=== PATIENT | male | born 1950 | race Caucasian/White ===

== ENCOUNTER 2018-08-02 11:10 | Outpatient (CLI) | payer MEDICARE, BC, SELFPAY ==
--- NOTE | 2018-08-02 13:04 | DI.RAD_ITS ---
SYMPTOM/DIAGNOSIS: PAIN LAT SIDE OF FOOT, M79.671 RIGHT FOOT: There are no prior comparison exams. There is a smoothly marginated bony density adjacent to the base of the fifth metatarsal which does not appear acute. No acute fracture or dislocation is seen. Heel spurs and vascular calcifications are present. IMPRESSION: Old fracture versus ossicle at the lateral base of the fifth metatarsal.
[2018-08-02 16:06] LABS: Vitamin B12 446 pg/mL (193-986)
== END 2018-08-02 11:30 ==
PROVIDERS: PCP Family Medicine; Visit Provider Family Medicine
DX: M79.671 Pain in right foot (principal); M77.31 Calcaneal spur, right foot; M85.871 Other specified disorders of bone density and structure, right ankle and foot; G62.9 Polyneuropathy, unspecified
CPT/HCPCS: 36415; 73630; 82607

== ENCOUNTER → 2018-10-24 08:29 | Outpatient (BNVA) | payer MEDICARE, BC, SELFPAY | PROVIDERS: PCP Family Medicine; Visit Provider Psychiatry & Neurology Neurology | DX: G62.9 Polyneuropathy, unspecified (principal); G57.10 Meralgia paresthetica, unspecified lower limb; I10 Essential (primary) hypertension | CPT/HCPCS: 99205; 99215 ==

== ENCOUNTER 2020-09-09 04:43 | Outpatient (CLI) | payer MEDICARE, BC, SELFPAY ==
[2020-09-09 13:43] LABS: ALT 65 U/L (16-63); AST 44 U/L (15-37); Albumin 4.2 g/dL (3.4-5.0); Alkaline Phosphatase 54 U/L (46-116); Anion Gap 10.8 mmol/L (3-11); BUN 15 mg/dL (7-18); Bilirubin, Total 0.8 mg/dL (0.2-1.0); CO2 26.2 mmol/L (21.0-32.0); CREATININE 0.93 mg/dL (0.70-1.30); Calcium 9.3 mg/dL (8.5-10.1); Calculated LDL 186 mg/dL (<100); Chloride 103 mmol/L (98-107); Cholesterol 270 mg/dL (<200); Glucose 82 mg/dL (74-106); HDL Cholesterol 63 mg/dL (40-60); Potassium 4.5 mmol/L (3.5-5.1); Sodium 140 mmol/L (136-145); Total Protein 7.8 g/dL (6.4-8.2); Triglyceride 108 mg/dL (<150)
== END 2020-09-09 05:03 ==
DX: E78.5 Hyperlipidemia, unspecified (principal); Z00.00 Encounter for general adult medical examination without abnormal findings
CPT/HCPCS: 36415; 80053; 80061

== ENCOUNTER 2021-01-05 14:19 | Emergency (ER) | payer MEDICARE, BC, SELFPAY ==
--- NOTE | 2021-01-05 14:15 | DI.RAD_ITS ---
Exam(s) XR HAND RT COMPLETE EXAM: XR HAND RT COMPLETE CLINICAL HISTORY: crushed by drive shaft, attn prox ring finger. TECHNIQUE: 2D digital imaging was performed. COMPARISON: No exams were available for comparison FINDINGS: There is a nondisplaced transverse fracture in the proximal 3rd of the proximal phalanx of 4th-ring f ron. There is also a prominent flexion deformity at the level of the DIP joint of the 5th finger. There is no fracture of the 5th finger evident. Degenerative changes in the DIP joints are noted th roughout the hand. Also mild subluxation of the metacarpophalangeal joint of the 3rd-middle finger d egenerative basis. There are no erosions. IMPRESSION: DATA REPOSITORY: RADIATION DOSE DELIVERED:
[2021-01-05 14:26] VITALS: BP 160/74; PULSE 74; RESP 15; TEMP 36.8; O2SAT 94
--- NOTE | 2021-01-05 14:27 | ED.GENADUL_ITS ---
Discharge Plan Disposition Patient Disposition: HOME Condition: Good Discharge Details Clinical Impression: Fracture of phalanx of ring finger Primary Care Provider: Mihaela Hatfield ED Provider: Ward Andre Home Meds and New Rx's Prescriptions: Continued omega-3 fatty acids [Fish Oil Concentrate] 1,000 mg capsule 1,000 mg PO DAILY Qty: 90 RF: 4 pyridoxine (vitamin B6) 25 mg tablet 25 mg PO DAILY RF: 0 simvastatin 10 mg tablet 10 mg PO QPM Qty: 30 RF: 11 lisinopril 10 mg tablet 10 mg PO DAILY Qty: 90 RF: 4 aspirin [Aspir-81] 81 mg tablet,delayed release (DR/EC) 81 mg PO DAILY RF: 0 multivitamin [Daily Multi-Vitamin] 1 EACH tablet 1 ea PO RF: 0 metoprolol tartrate 50 mg tablet 25 mg PO BID Qty: 90 RF: 4 nitroglycerin 0.4 mg tablet, sublingual 0.4 mg sublingual Q5M PRN (Reason: chest pain) Qty: 20 RF: 3 vitamin b1 See Rx Instructions .ROUTE .COMPLEX RF: 0 Discharge Instructions Instructions: Finger Fracture (ED) Additional Instructions: At this time you have a fracture of your finger. Please leave the splint on and do not bend your finger. Please take the antibiotic as directed to prevent any infection. If you notice any worsening of your symptoms, or any new symptoms such as redness, drainage vomiting, diarrhea, fever, chills, shortness of breath, chest pain, numbness, weakness, or fainting , please return immediately to the emergency department for reevaluation. Please follow up with your primary care provider as soon as possible for reassessment and reevaluation. As always, it was a pleasure participating in your medical care today. Referrals: Mihaela Hatfield, [facility] [Primary Care Provider] - Medical Decision Making 70-year-old male with a past medical history of hypertension, high cholesterol, he takes a daily aspirin, he presents today for evaluation for right hand pain. Patient states that he is working and a [address] shaft fell fairly fast onto his right hand causing some evidence of injury. He came to the ER for further assessment. Patient used to be right-hand dominant, but after multiple previous injuries to the right hand he states he now uses his left hand more. 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 He is not on any blood thinners aside for the daily aspirin. He describes the pain as minimal. He has no other complaint this time Physical exam demonstrates mild bruising and swelling over the patient's fourth metacarpal phalangeal joint. He demonstrates good flexion and extension and strength otherwise to what he describes as his baseline. Sensation and vascular exam appears intact. Concern for potential fracture. Exam is challenging due to the nature and size of the patient's hand at baseline. The patient is not on any Tylenol or Motrin at this time. Of note the patient is not up-to-date on his tetanus. Review of previous records demonstrates that he is not inclined to getting his vaccines for tetanus. We will give him the option again today 3:17 PM X-ray shows evidence of a small transverse fracture at the proximal phalanx of the fourth digit. He does have the chronic deformity of his fifth digit, which is unchanged. He does still have a small scrape and/or superficial laceration, over the area of the break site however out of an abundance of precaution we will prescribe Keflex antibiotic to prevent any infection. Patient did accept a tetanus shot this evening. We splinted the finger, he tolerated this well. Recommend close follow-up with his PCP, Tylenol and Motrin as needed. Will give a prescription for home Keflex. Discussed red flags which to return. I have extensively reviewed the treatment plan and discharge instructions with the patient and their family. I have addressed all patient concerns at this time. The patient and family was made aware of what symptoms to monitor for that would warrant a return to the emergency department. Discussed the plan with the patient and family, they demonstrate verbal understanding and agreement with our assessment and plan at this time. The documentation in this chart was dictated using [employer] dictation software. Please excuse any dictation errors. FINDINGS: There is a nondisplaced transverse fracture in the proximal 3rd of the proximal phalanx of 4th-ring finger. There is also a prominent flexion deformity at the level of the DIP joint of the 5th finger. There is no fracture of the 5th finger evident. Degenerative changes in the DIP joints are noted throughout the hand. Also mild subluxation of the metacarpophalangeal joint of the 3rd-middle finger degenerative basis. There are no erosions. HPI General Date/Time Provider Initiated Documentation: 01/05/21 14:20 . HPI Narrative: 70-year-old male with a past medical history of hypertension, high cholesterol, he takes a daily aspirin, he presents today for evaluation for right hand pain. Patient states that he is working and a [address] shaft fell fairly fast onto his right hand causing some evidence of injury. He came to the ER for further assessment. Patient used to be right-hand dominant, but after multiple previous injuries to the right hand he states he now uses his left hand more. 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 He is not on any blood thinners aside for the daily aspirin. He describes the pain as minimal. He has no other complaint this time Related Data Home Medications Medication Instructions Recorded Confirmed multivitamin [Daily Multi-Vitamin] 1 ea PO 03/29/16 09/13/20 aspirin 81 mg tablet,delayed 81 mg PO DAILY 08/01/18 01/05/21 release metoprolol tartrate 50 mg tablet 25 mg PO BID #90 tab 11/25/19 01/05/21 nitroglycerin 0.4 mg sublingual 0.4 mg SUBLINGUAL Q5M PRN #20 tab 06/30/20 01/05/21 tablet omega-3 fatty acids 1,000 mg 1,000 mg PO DAILY #90 cap 07/13/20 01/05/21 capsule vitamin b1 See Rx Instructions .ROUTE .COMPLEX 07/27/20 09/13/20 pyridoxine (vitamin B6) 25 mg 25 mg PO DAILY 09/13/20 01/05/21 tablet simvastatin 10 mg tablet 10 mg PO QPM #30 tab 09/13/20 09/13/20 lisinopril 10 mg tablet 10 mg PO DAILY #90 tab-cap 09/19/20 01/05/21 Previous Rx's Medication Instructions Recorded metoprolol tartrate 50 mg tablet 25 mg PO BID #90 tab 11/25/19 nitroglycerin 0.4 mg sublingual 0.4 mg SUBLINGUAL Q5M PRN #20 tab 06/30/20 tablet omega-3 fatty acids 1,000 mg 1,000 mg PO DAILY #90 cap 07/13/20 capsule simvastatin 10 mg tablet 10 mg PO QPM #30 tab 09/13/20 lisinopril 10 mg tablet 10 mg PO DAILY #90 tab-cap 09/19/20 Allergies Allergy/AdvReac Type Severity Reaction Status Date / Time No Known Allergies Allergy Verified 01/05/21 14:31 Review of Systems All systems reviewed & are unremarkable except as noted in HPI and below PFSH Medical History Acne rosacea Actinic keratosis Alcohol use Coronary artery disease involving 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 (03/24/16) Coronary stent x 19 November 2010 Recurrent angina CABG x2 03/10/16 Essential hypertension Hearing loss History of tobacco use Hyperlipidemia Immunization counseling Peripheral neuropathy Sciatica Surgical History Coronary Artery Bypass Gaft (CABG) (03/10/16) Coronary Stent (11/30/10) Repair of inguinal hernia (~2002) RIGHT Family History Mother Diabetes Father , 85 Cancer Social History Smoking/Tobacco Use Status: Never Smoking risk assessment performed?: Yes Alcohol Intake: current Alcohol Intake frequency: 3 or more drinks per day Alcohol type: beer Drug use: Never Substance use type: does not use Counseling given: No Counseling provided: none Caregiver/Support person: No Household members: spouse and family Housing: house 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 Pets and animals: No Sexually active: Yes Do you think of yourself as: straight/heterosexual Current gender identity: female What is your relationship status?: How often do you talk on the phone with friends or family?: three or more times per week How often do you get together with friends or relatives?: decline to answer How often do you attend congregation or hinduism services?: decline to answer Do you belong to any clubs or organized social groups?: yes Panel score (0-1 are the most socially isolated patients): 3 What type of physical activity do you participate in: none Sussy/Confucianist: Spiritism Seatbelt use: sometimes Drive intox 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 3.ENT: Atraumatic external nose and ears. Moist MM. Neck: Symmetric, trachea midline, No thyromegaly. 4.CVS: +S1/S2, No murmurs or gallops. Peripheral pulses 2+ and equal in all extremities. Brisk capillary refill in all extremities. 5.RESP: Unlabored respiratory effort. Clear to auscultation bilaterally. No wheezes rales or rhonchi 6.GI: Soft, Nontender/Nondistended, No hepatosplenomegaly. No guarding or rebound. 7.MSK: Patient's right hand is notably large at baseline secondary to calluses, muscles, and previous scars, there appears to be some mild bruising and swelling over the metacarpal phalangeal joint of the fourth digit on the right hand. Small scrape and mild bleeding there. Tenderness is present there, but no tenderness at the distal phalanx, or any of the other fingers. No other tenderness over the carpals or metacarpals. Sensation appears to be intact distally, and patient is able to flex and extend to what he describes this is baseline. Capillary refill is brisk in all fingers. No other complaints at this time. 8.Skin: Warm, Dry. No rashes or lesions. 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 Sensation grossly intact, no focal neurologic deficits. 10.Psych: (AAO) x3. Appropriate mood and affect
[2021-01-05] MEDS: Cephalexin 500 MG CAP, 4 CAPS/BTL PO (15:10)
== END 2021-01-05 15:20 | disposition home or self-care (01) ==
PROVIDERS: Emergency Provider Student in an Organized Health Care Education/Training Program
DX: S67.21XA Crushing injury of right hand, initial encounter (principal); S62.644A Nondisplaced fracture of proximal phalanx of right ring finger, initial encounter for closed fracture; W20.8XXA Other cause of strike by thrown, projected or falling object, initial encounter
CPT/HCPCS: 26720; 90471; 73130

== ENCOUNTER 2022-10-05 00:26 | Outpatient (CLI) | payer OTHER, SELFPAY ==
--- NOTE | 2022-10-05 08:42 | DI.RAD_ITS ---
Exam(s) XR LUMBAR SPINE COMPLETE EXAM: XR LUMBAR SPINE COMPLETE CLINICAL HISTORY: low back pain is worse after 6 weeks of PT,m54.50. TECHNIQUE: 2D digital imaging was performed. COMPARISON: No exams were available for comparison FINDINGS: Six views: There is transitional anatomy here with a transitional lumbosacral vertebra. There is no evidence of fracture nor listhesis. No pars defects. Multilevel moderate disc space soo rowing noted throughout the lumbosacral spinal column. Multilevel anterior osseous lipping. No scol iosis. Mild facet degenerative changes. SI joints unremarkable. Bone density normal. No osseous l esions IMPRESSION: Multilevel mild-moderate disc space narrowing. DATA REPOSITORY: RADIATION DOSE DELIVERED:
== END 2022-10-05 00:46 ==
PROVIDERS: PCP Nurse Practitioner Family; Visit Provider Nurse Practitioner Family
DX: M54.50 Low back pain, unspecified (principal)
CPT/HCPCS: 72110

== ENCOUNTER 2022-11-02 01:20 | Outpatient (CLI) | payer OTHER, SELFPAY ==
--- NOTE | 2022-11-02 06:45 | DI.MRI_ITS ---
Exam(s) MR LUMBAR SPINE WO EXAM: MR LUMBAR SPINE WO CLINICAL HISTORY: LOW BACK pain, worse after 6 weeks of PT,M54.50. TECHNIQUE: Imaging Protocol: Axial computed tomography images with coronal and sagittal reformatted images were created and reviewed COMPARISON: CR XR LUMBAR SPINE COMPLETE from 10/05/2022 FINDINGS: Bones: The last intervertebral disc space is designated the L5/S1 level for the numbering purpose of this examination. The vertebral body heights are well maintained. Alignment is satisfactory. No fracture is seen. T12-L1: No disc herniations or bulges are present. L1-2: Mild concentric disc bulging. L2-3: Mild loss of disc height. Small endplate osteophytes. Circumferential disc bulging. Facet d egenerative changes and ligamentous hypertrophy. Mild central canal stenosis. Moderate to severe bi lateral neural foraminal narrowing. L3-4: Moderate concentric disc bulging. Facet degenerative changes moderate central canal stenosis. Moderate to severe bilateral neural foraminal narrowing. L4-5: Disc height is maintained. Mild concentric disc bulging. Prominent facet degenerative change s severe bilateral neural foraminal narrowing. Moderate central canal stenosis. L5-S1: Mild disc bulging. Facet degenerative changes and ligamentous hypertrophy. Mild central can al stenosis. Moderate to severe bilateral neural foraminal narrowing. There is abundant epidural fat which contributes to a degree of central canal stenosis. The visualized SI joints and sacrum are will maintained. Soft Tissues: The paraspinal soft tissues are unremarkable. IMPRESSION: Multilevel degenerative disc changes and facet degenerative changes as well as prominent epidural fat causes central canal stenosis, moderate at L3-4 and L4-5. Multilevel bilateral neural foraminal narrowing. RADIATION DOSE DELIVERED: Total DLP DATA REPOSITORY: All CT scans at this facility are submitted to the National Radiology Data Registry (NRDR) Dose Index Registry (DIR) with the [employer] (A[employer]). RADIATION OPTIMIZATION: All CT scans at this facility use at least one of these dose optimization te chniques: automated exposure control; mA and/or kV adjustment per patient size (includes targeted exa ms where dose is matched to clinical indication); or iterative reconstruction.
== END 2022-11-02 01:40 ==
PROVIDERS: PCP Nurse Practitioner Family; Visit Provider Nurse Practitioner Family
DX: M54.59 Other low back pain (principal); M51.37 Other intervertebral disc degeneration, lumbosacral region; M47.817 Spondylosis without myelopathy or radiculopathy, lumbosacral region; M48.07 Spinal stenosis, lumbosacral region
CPT/HCPCS: 72148

== ENCOUNTER 2023-02-06 03:28 | Outpatient (CLI) | payer OTHER, SELFPAY ==
[2023-02-06 12:33] LABS: Estimated GFR 79.97 (mL/min/1.73m2)
[2023-02-06 12:39] LABS: ALT 35 U/L (16-63); AST 25 U/L (15-37); Albumin 3.6 g/dL (3.4-5.0); Alkaline Phosphatase 52 U/L (46-116); Anion Gap 6.9 mmol/L (3-11); BUN 15 mg/dL (7-18); Bilirubin, Total 0.6 mg/dL (0.2-1.0); CO2 29.1 mmol/L (21.0-32.0); Calculated LDL 210 mg/dL (<100); Chloride 103 mmol/L (98-107); Cholesterol 297 mg/dL (<200); Estimated GFR 79.97 (mL/min/1.73m2); Glucose 105 mg/dL (74-106); HDL Cholesterol 67 mg/dL (40-60); Potassium 4.6 mmol/L (3.5-5.1); Sodium 139 mmol/L (136-145); Triglyceride 102 mg/dL (<150)
[2023-02-06 12:53] LABS: Calcium 9.1 mg/dL (8.5-10.1)
== END 2023-02-06 03:29 | disposition home or self-care (01) ==
LOC: LOS 03:28
PROVIDERS: PCP Nurse Practitioner Family; Visit Provider Nurse Practitioner Family
DX: E78.5 Hyperlipidemia, unspecified (principal); I10 Essential (primary) hypertension; I25.810 Atherosclerosis of coronary artery bypass graft(s) without angina pectoris; F10.10 Alcohol abuse, uncomplicated
CPT/HCPCS: 36415; 80053; 80061; 82565

== ENCOUNTER 2024-08-05 11:00 | Outpatient (CLI) | payer OTHER, SELFPAY ==
[2024-08-05 12:35] LABS: ALT 38 U/L (16-63); AST 35 U/L (15-37); Albumin 3.8 g/dL (3.4-5.0); Alkaline Phosphatase 60 U/L (46-116); Anion Gap 6.1 mmol/L (3-11); BUN 14 mg/dL (7-18); Bilirubin, Total 0.52 mg/dL (0.2-1.0); CO2 26.9 mmol/L (21.0-32.0); CREATININE 1.1 mg/dL (0.70-1.30); Calcium 9.4 mg/dL (8.5-10.1); Calculated LDL 91 mg/dL (<100); Chloride 103 mmol/L (98-107); Cholesterol 194 mg/dL (<200); Estimated GFR 70.88 (mL/min/1.73m2); Glucose 112 mg/dL (74-106); HDL Cholesterol 78 mg/dL (40-60); Potassium 4.3 mmol/L (3.5-5.1); Sodium 136 mmol/L (136-145); Total Protein 8.3 g/dL (6.4-8.2); Triglyceride 129 mg/dL (<150)
== END 2024-08-05 11:01 | disposition home or self-care (01) ==
LOC: LOS 11:00
PROVIDERS: PCP Nurse Practitioner Family; Referring Provider Nurse Practitioner Family; Visit Provider Nurse Practitioner Family
DX: E78.5 Hyperlipidemia, unspecified (principal); M54.50 Low back pain, unspecified; M79.673 Pain in unspecified foot; I25.810 Atherosclerosis of coronary artery bypass graft(s) without angina pectoris
CPT/HCPCS: 36415; 80053; 80061